=== PATIENT | male | born 1965 | race Hispanic/Latino ===

== ENCOUNTER 2022-11-10 17:19 | Inpatient (IN) | payer SELFPAY ==
--- OUTSIDE RECORDS SUMMARY | 2022-11-10 17:24 | XMS REPORT | Continuity of Care Document ---
:1965 Author Organization [facility] t Address [address] [facility] [address] [place] [address] Care Team Providers Name Role Phone PCP, PATIENT DOES NOT HAVE A Primary Care Physician Unavaila ble NU BEE Attending Clinician Unavailable NU BEE Attending Clinician Unavailable Doctor Unassigned, [facility] Attending Clinician Unavailable BRENDA TIRADO Attending Clinician Unavailable Pob, [facility] Main Attending Clinician Unavailable Brenda Tirado MD Attending Clinician Rashmi Delcid LVN Attending Clinician CITLALY LUZ Attending Clinician Unavailable Micah Parks DO Attending Clinician Fritz Marin MD Attending Clinician Citlaly Luz MD Attending Clinician MARIA LUISA SPENCER Attending Clinician Unavailable Maria Luisa Franks Attending Clinician DEREK COLUNGA Attending Clinician Unavailable Derek Colunga MD Attending Clinician _[facility] Attending Clinician Unavailable ALEX RICHARDSON Attending Clinician Unavailable Alex Richardson MD Attending Clinician FRITZ MARIN Admitting Clinician Unavailable Fritz Marin MD Admitting Clinician DEREK COLUNGA Admitting Clinician Unavailable [email or web address] Admitting Clinician Unavailable Payers Payer Name Policy Type Policy Number Effective Date Expiration Date [place] PENDING 2022 PENDING 00:00:00 Problems Condition Condition Condition Status Onset Resolution Last Treating Co mments Source Name Details Category Date Date Treatment Clinician Date Pain in Pain in Disease Active Univers testicle, testicle, 08-10 ity of unspecif[place] Medical laterality laterality Br anch Epididymo- Epididymo- Disease Active U nivers orchitis orchitis 08-10 ity of 00:00: [place] 00 Medical Branch Allergies, Adverse Reactions, Alerts Allergy Allergy Status Severity Reaction(s) Onset Inactive Treating Comm ents Source Name Type Date Date Clinician NO KNOWN Drug Active Univers ALLERGIE Class ity of S [place] [facility] Social History Social Habit Start Date Stop Date Quantity Comments Source History SDOH University o f Alcohol Std Drinks [place] [facility] History SDOH University o f Alcohol Binge [place] [facility] al [facility] History SDOH Social Unive rsity of Connections [facility] Med ical Together Branch History SDOH Social Unive rsity of Connections [facility] Medical Branch History SDOH Social Unive rsity of Connections [place] [facility] Membership Branch History SDOH Social Unive rsity of Connections [place] [facility] Meetings Branch History of tobacco Cigarette Smoker University of use [place] [facility] Alcohol intake 2022-08-25 2022-08-25 Ex-drinker University of 00:00:00 00:00:00 (finding) [place] [facility] History SDOH 2022-08-10 2022-08-10 1 University o f Alcohol Frequency 00:00:00 00:00:00 [place] M edical Branch History SDOH Social 2022-08-10 2022-08-10 5 Unive rsity of Connections Phone 00:00:00 00:00:00 [place] M edical Branch History SDOH Social 2022-08-10 2022-08-10 3 Unive rsity of Connections Living 00:00:00 00:00:00 [place] [facility] History SDOH 2022-08-10 2022-08-10 5 University o f Physical Activity 00:00:00 00:00:00 [place] [facility] ed[facility] DPW Branch History SDOH 2022-08-10 2022-08-10 4 University o f Physical Activity 00:00:00 00:00:00 [place] [facility] MPS Branch History SDOH 2022-08-10 2022-08-10 5 University o f Financial 00:00:00 00:00:00 [place] [facility] History SDOH Food 2022-08-10 2022-08-10 1 Univers ity of Worry 00:00:00 00:00:00 [place] [facility] History SDOH Food 2022-08-10 2022-08-10 1 Univers ity of Scarcity 00:00:00 00:00:00 [place] [facility] History SDOH 2022-08-10 2022-08-10 2 University o f Transport Med 00:00:00 00:00:00 [place] [facility] al [facility] History SDNV 2022-08-10 2022-08-10 2 University o f Transport Non-Med 00:00:00 00:00:00 [place] M edical Branch History SDNV 2022-08-10 2022-08-10 2 University o f Housing Unable to 00:00:00 00:00:00 [place] M edical Pay Branch History SDNV 2022-08-10 2022-08-10 1 University o f Housing Places 00:00:00 00:00:00 [place] [facility] crow Lived Branch History [facility] 2022-08-10 2022-08-10 2 University o f Housing Homeless 00:00:00 00:00:00 [facility] dical Last Year Branch Alcohol Comment 2022-08-10 2022-08-10 12-15 beers on a Uni versity of 00:00:00 00:00:00 week for 30 [place] [facility] years. Quit 9 Branch months ago Cigarettes smoked 2022-08-10 2022-08-10 Univers ity of current (pack per 00:00:00 00:00:00 [facility] edical day) - Reported Branch Cigarette 2022-08-10 2022-08-10 University of pack-years 00:00:00 00:00:00 [facility] Branch Tobacco use and 2022-08-10 2022-08-10 Smokeless Universit y of exposure 00:00:00 00:00:00 tobacco non-user [place] Me dical Branch Exposure to 2022-07-30 2022-08-09 Not sure University of SARS-CoV-2 (event) 00:00:00 19:55:00 [facility] Sex Ass[birth year] At [birth year] Universit y of 00:00:00 00:00:00 [facility] Smoking Status Start Date Stop Date Source Tobacco smoking [place] consumption unknown Medical Bran ch Ex-smoker 2022-08-10 00:00:00 2022-08-10 [place] o f [place] 00:00:00 [facility] Medications Ordered Filled Start Stop Current Ordering Indication Dosage Frequency Signature Comments Components Source Medication Medication Date Date Medication? Clinician (SIG) Name Name ciprofloxac 2022- Yes 500mg 500 mg, U nivers in HCl 5-25 06-04 Oral, ity of (CIPRO) 12:45: 10:59 Q12HA2, 20 [place] tablet 500 00 :00 doses, Medical mg First dose Branch on Karina 08/13/22 at 0745, Last dose on 08/22/22 at 1800, HELGA
Re ason for Anti-Infec tive: Documented Infection< br>Documen sofia Infection Site: Skin / Soft Tissue
Duration of Therapy: 7 days ciprofloxac 2022- Yes [id number] 500mg Take 1 Univers in HCl 500 5-25 06-04 tablet by ity of mg tablet 00:00: 04:59 mouth [place] 00 :00 every 12 Medical (twelve) Branch hours for 9 days. ciprofloxac 2022- Yes [id number] 500mg Take 1 Univers in HCl 500 5-25 06-04 tablet by ity of mg tablet 00:00: 04:59 mouth [place] 00 :00 every 12 Medical (twelve) Branch hours for 9 days. ciprofloxac 2022- Yes [id number] 500mg Take 1 Univers in HCl 500 5-25 06-04 tablet by ity of mg tablet 00:00: 04:59 mouth [place] 00 :00 every 12 Medical (twelve) Branch hours for 9 days. ciprofloxac 2022- Yes [id number] 500mg Take 1 Univers in HCl 500 5-25 06-04 tablet by ity of mg tablet 00:00: 04:59 mouth [place] 00 :00 every 12 Medical (twelve) Branch hours for 9 days. NaCl 0.9% 0 2022- No 500mL at 999 Univ ers (NS) bolus 08-12 05-24 mL/hr, 500 it y of infusion 07:45: 09:02 mL, IV [place] 500 mL 00 :00 Piggyback, [facility] ONCE, 1 Branch dose, On Wed08/12/22 at 0245, HELGA NaCl 0.9% 0 2022- No 500mL at 999 Univ ers (NS) bolus 08-11 05-23 mL/hr, 500 it y of infusion 22:45: 23:16 mL, IV [place] 500 mL 00 :43 Piggyback, Medical ONCE, 1 Branch dose, On Wed08/11/22 at 1745, STAT acetaminoph Yes 650mg 650 mg, Un gavi en 08-11 Oral, ity of (TYLENOL) 21:57: Q6HPRN, [place] tablet 650 24 Starting Medic al mg on Wed08/11/22 at 1657, Until Discontinu ed, Routine, Pain (scale 1-3), Temp > 38 C lactulose Yes 15mL 15 mL, Univer s (CEPHULAC) 08-11 Oral, TID, ity of solution 15 13:00: First dose [place] mL 00 on Wed [facility] 08/11/22 at Branch 0800, Until Discontinu ed, Routine bisacodyL Yes 10mg 10 mg, Univer s (DULCOLAX) 08-11 Rectal, ity of suppository 12:53: QHSPRN, [place] 10 mg 54 Starting Medical on Wed [place] 08/11/22 at 0753, Until Discontinu ed, Routine, Constipati on, Constipati on unresolved by oral medication s cefTRIAXone 0 2022- No 1000mg 1,000 mg, Univers (ROCEPHIN) 08-11 05-25 IV ity of 1,000 mg in 03:05: 12:33 [place], [place] NaCl 0.9% 00 :41 Q24H ABX, Medic al (NS) 100 mL 7 doses, Bran ch MINI-BAG First dose on 08/10/22 at 2215, Last dose on Wed08/16/22 at 2215, Administer over 30 Minutes, 100 mL
Reas on for Anti-Infec tive: Documented Infection< br>Documen sofia Infection Site: Urine
D uration of Therapy: 7 days tamsulosin Yes .4mg 0.4 mg, Univ ers (FLOMAX) 08-11 Oral, QHS, ity o f capsule 0.4 02:00: First dose [place] mg 00 on [facility] 08/10/22 at Branch 2100, Until Discontinu ed, Routine enoxaparin Yes 40mg 40 mg, Unive rs (LOVENOX) 08-10 Subcutaneo ity of injection 22:00: us, DAILY, [place] 40 mg 00 First dose Medical on [facility] 08/10/22 at 1700, Until Discontinu ed, Routine NaCl 0.9% No 500mL at 999 Univ ers (NS) bolus 08-10 mL/hr, 500 it y of infusion 14:45: 15:12 mL, IV [place] 500 mL 00 :43 Piggyback, Medical ONCE, 1 Branch dose, On [facility] 08/10/22 at 0945, STAT sennosides Yes 8.6mg 8.6 mg, Uni vers (SENOKOT) 08-10 Oral, ity of tablet 8.6 14:00: DAILY, [place] mg 00 First dose Medical on [facility] 08/10/22 at 0900, Until Discontinu ed, Routine finasteride Yes 5mg 5 mg, Unive rs (PROSCAR) 08-10 Oral, ity of tablet 5 mg 14:00: DAILY, [place] 00 First dose Medical on [facility] 08/10/22 at 0900, Until Discontinu ed, Routine polyethylen 2022- No 17g 17 g, Univ ers e glycol 08-10 Oral, ity of 3350 powder 14:00: 12:53 DAILY, [place] 17 g 00 :50 First dose Medical on [facility] 08/10/22 at 0900, Until Discontinu ed, Routine doxycycline 2022- No 100mg 100 mg, IV Univers (VIBRAMYCIN 08-10 Piggyback, i ty of ) 100 mg in 09:15: 12:31 Q12H ABX, [place] NaCl 0.9% 00 :21 14 doses, Medic al (NS) 100 mL First dose Br anch MINI-BAG on Wed08/10/22 at 0415, Last dose on Wed08/16/22 at 1615, Administer over 60 Minutes, 100 mL
Reas on for Anti-Infec tive: Documented Infection< br>Documen sofia Infection Site: Urine
D uration of Therapy: 7 days acetaminoph 2022- No 650mg 650 mg, U nivers en 08-10 Oral, ity of (TYLENOL) 08:05: 21:57 Q6HPRN, [place] tablet 650 58 :33 Starting Medic al mg on Wed08/10/22 at 0305, Until Wed08/11/22 at 1657, Routine, Pain (scale 1-3) NaCl 0.9% 2022- No 500mL at 999 Univ ers (NS) bolus 08-10-22 mL/hr, 500 it y of infusion 04:30: 05:05 mL, IV [place] 500 mL 00 :00 Infusion, Medical ONCE, 1 Branch dose, On [place] 08/09/22 at 2330, STAT acetaminoph 2022-2022- No 650mg 650 mg, U nivers en 08-10 Oral, ity of (TYLENOL) 03:45: 03:44 ONCE, 1 [place] tablet 650 00 :00 dose, On Medic al mg [facility] 08/09/22 at 2245, HELGA NaCl 0.9% 2022- No 500mL at 999 Univ ers (NS) bolus 08-10-22 mL/hr, 500 it y of infusion 03:45: 05:05 mL, IV [place] 500 mL 00 :00 Infusion, Medical ONCE, 1 Branch dose, On [place] 08/09/22 at 2245, STAT cefTRIAXone 2022-2022- No 1000mg 1,000 mg, Univers (ROCEPHIN) 08-10 IV ity of 1,000 mg in 03:15: 03:35 Piggyback, [place] NaCl 0.9% 00 :00 ONCE, 1 Medical (NS) 100 mL dose, On Bran ch MINI-BAG [place] 08/09/22 at 2215, Administer over 30 Minutes, 100 mL
Reas on for Anti-Infec tive: Documented Infection< br>Documen sofia Infection Site: Urine<br&g t;Duration of Therapy: 7 days ketorolac No 15mg 15 mg, Unive rs (TORADOL) 08-10 Slow IV ity of injection 02:15: 01:17 Push, [place] 15 mg 00 :00 ONCE, 1 Medical dose, On Branch Wed08/09/22 at 2115, HELGA NaCl 0.9% 2022- No 1000mL at 999 Uni vers (NS) bolus 08-10- mL/hr, ity of infusion 02:00: 02:27 1,000 mL, [place] 1,000 mL 00 :00 IV Medical Infusion, Branch ONCE, 1 dose, On Wed08/09/22 at 2100, HELGA NaCl 0.9% 2022- No 1000mL at 999 Uni vers (NS) bolus 07-16 04-27 mL/hr, ity of infusion 02:45: 03:31 1,000 mL, [place] 1,000 mL 00 :00 IV Medical Piggyback, Branch ONCE, 1 dose, On Wed07/15/22 at 2145, STAT finasteride Yes [id number] 5mg Take 1 Univers (PROSCAR) 5 4-26 tablet by ity of mg tablet 00:00: mouth [place] 00 daily. [facility] finasteride Yes [id number] 5mg Take 1 Univers (PROSCAR) 5 4-26 tablet by ity of mg tablet 00:00: mouth [place] 00 daily. [facility] finasteride Yes [id number] 5mg Take 1 Univers (PROSCAR) 5 4-26 tablet by ity of mg tablet 00:00: mouth [place] 00 daily. [facility] finasteride Yes [id number] 5mg Take 1 Univers (PROSCAR) 5 4-26 tablet by ity of mg tablet 00:00: mouth [place] 00 daily. [facility] finasteride Yes [id number] 5mg Take 1 Univers (PROSCAR) 5 4-26 tablet by ity of mg tablet 00:00: mouth [place] 00 daily. [facility] tamsulosin Yes [id number] .4mg Take 1 Univers 0.4 mg 24 4-26 capsule by ity of hr capsule 00:00: mouth at [place] 00 bedtime. Medical Branch finasteride 2022-0 Yes [id number] 5mg Take 1 Univers (PROSCAR) 5 4-26 tablet by ity of mg tablet 00:00: mouth [place] 00 daily. Medical Branch tamsulosin 2022-0 Yes [id number] .4mg Take 1 Univers 0.4 mg 24 4-26 capsule by ity of hr capsule 00:00: mouth at [place] 00 bedtime. Medical Branch finasteride 2022-0 Yes [id number] 5mg Take 1 Univers (PROSCAR) 5 4-26 tablet by ity of mg tablet 00:00: mouth [place] 00 daily. Medical Branch finasteride 2022-0 Yes [id number] 5mg Take 1 Univers (PROSCAR) 5 4-26 tablet by ity of mg tablet 00:00: mouth [place] 00 daily. Medical Branch finasteride 2022-0 Yes [id number] 5mg Take 1 Univers (PROSCAR) 5 4-26 tablet by ity of mg tablet 00:00: mouth [place] 00 daily. Medical Branch tamsulosin 0 2022- No [id number] .4mg Take 1 Univers 0.4 mg 24 4-26 05-08 capsule by ity of hr capsule 00:00: 00:00 [place] :00 bedtime. Medical Branch tamsulosin 2022-0 2022- No [id number] .4mg Take 1 Univers 0.4 mg 24 4-26 05-08 capsule by ity of hr capsule 00:00: 00:00 [place] 00 :00 bedtime. Medical Branch tamsulosin 2022-0 Yes [id number] .4mg Take 1 Univers 0.4 mg 24 4-24 capsule by ity of hr capsule 00:00: mouth at [place] 00 bedtime. Medical Branch tamsulosin 2022-0 Yes [id number] .4mg Take 1 Univers 0.4 mg 24 4-24 capsule by ity of hr capsule 00:00: mouth at [place] 00 bedtime. Medical Branch tamsulosin 2022-0 Yes [id number] .4mg Take 1 Univers 0.4 mg 24 4-24 capsule by ity of hr capsule 00:00: mouth at [place] 00 bedtime. Medical Branch tamsulosin 2022-0 Yes [id number] .4mg Take 1 Univers 0.4 mg 24 4-24 capsule by ity of hr capsule 00:00: mouth at [place] 00 bedtime. Medical Branch tamsulosin 2022-0 Yes [id number] .4mg Take 1 Univers 0.4 mg 24 4-24 capsule by ity of hr capsule 00:00: mouth at [place] 00 bedtime. Medical Branch tamsulosin 2022-0 Yes [id number] .4mg Take 1 Univers 0.4 mg 24 4-24 capsule by ity of hr capsule 00:00: mouth at [place] 00 bedtime. Medical Branch tamsulosin 2022-0 Yes [id number] .4mg Take 1 Univers 0.4 mg 24 4-24 capsule by ity of hr capsule 00:00: mouth at [place] 00 bedtime. Medical Branch tamsulosin 2022-0 Yes [id number] .4mg Take 1 Univers 0.4 mg 24 4-24 capsule by ity of hr capsule 00:00: mouth at [place] 00 bedtime. Medical Branch tamsulosin 2022-0 Yes [id number] .4mg Take 1 Univers 0.4 mg 24 4-24 capsule by ity of hr capsule 00:00: mouth at [place] 00 bedtime. Medical Branch tamsulosin 2022-0 Yes [id number] .4mg Take 1 Univers 0.4 mg 24 4-24 capsule by ity of hr capsule 00:00: mouth at [place] 00 bedtime. Medical Branch Immunizations Ordered Immunization Filled Immunization Date Status Commen ts Source Name Name tetanus toxoid, tetanus toxoid, 2020-03-22 Completed [facility] unspecified unspecified 00:00:00 formulation formulation Vital Signs Vital Name Observation Time Observation Value Comments Source Systolic blood 2022-08-13 17:28:00 137 mm[Hg] Univer sity of pressure [facility] Diastolic blood 2022-08-13 17:28:00 96 mm[Hg] [facility] Heart rate 2022-08-13 17:28:00 85 /min [facility] Body temperature 2022-08-13 17:28:00 36.22 Haley [facility] Respiratory rate 2022-08-13 17:28:00 20 /min [facility] Oxygen saturation in 2022-08-13 17:28:00 96 /min University of Arterial blood by [place] [facility] crow Pulse oximetry Branch Body height 2022-08-10 08:04:00 170.2 cm Universi ty of [place] [facility] Body weight 2022-08-10 08:04:00 82.555 kg Universi ty of [place] [facility] BMI 2022-08-10 08:04:00 28.51 kg/m2 Universi ty of [place] [facility] Systolic blood 2022-07-27 19:26:00 143 mm[Hg] Univer sity of pressure [place] [facility] Diastolic blood 2022-07-27 19:26:00 98 mm[Hg] Unive rsity of pressure [place] [facility] Heart rate 2022-07-27 19:26:00 88 /min Universi ty of [place] [facility] Oxygen saturation in 2022-07-27 19:26:00 97 /min University of Arterial blood by [facility] Pulse oximetry Branch Body temperature 2022-07-27 19:24:00 36.17 Haley Univ ersity of [place] [facility] Respiratory rate 2022-07-27 19:24:00 18 /min Univ ersity of [place] [facility] Body height 2022-07-27 19:24:00 170.2 cm Universi ty of [place] [facility] Body weight 2022-07-27 19:24:00 81.194 kg Universi ty of [place] [facility] BMI 2022-07-27 19:24:00 28.04 kg/m2 Universi ty of [place] [facility] Systolic blood 2022-07-16 03:00:00 149 mm[Hg] Univer sity of pressure [place] [facility] Diastolic blood 2022-07-16 03:00:00 92 mm[Hg] Unive rsity of pressure [place] [facility] Heart rate 2022-07-16 03:00:00 67 /min Universi ty of [place] [facility] Respiratory rate 2022-07-16 03:00:00 18 /min Univ ersity of [place] [facility] Oxygen saturation in 2022-07-16 03:00:00 95 /min University of Arterial blood by [facility] crow Pulse oximetry Branch Body temperature 2022-07-15 23:32:00 37 Haley Univ ersity of [place] [facility] Body weight 2022-07-15 23:32:00 78.019 kg Universi ty of [place] [facility] Systolic blood 2022-07-13 09:28:00 176 mm[Hg] [facility] Diastolic blood 2022-07-13 09:28:00 115 mm[Hg] [facility] Heart rate 2022-07-13 09:28:00 90 /min [facility] Body temperature 2022-07-13 09:28:00 36.28 Haley [facility] Respiratory rate 2022-07-13 09:28:00 16 /min [facility] Body weight 2022-07-13 09:28:00 78.382 kg [facility] Body Weight 2022-07-13 00:00:00 2790 [oz_av] Fabiola Godinez edical BP Diastolic 2022-07-13 00:00:00 95 mm[Hg] [facility] Height 2022-07-13 00:00:00 67 [in_i] Fabiola Godinez edical BMI (Body Mass 2022-07-13 00:00:00 27.3 kg/m2 [facility]) BP Systolic 2022-07-13 00:00:00 139 mm[Hg] Fabiola Godinez edical Procedures Procedure Date / Time Performing Clinician Source Performed DISCLOSURE AND CONSENT, 2022-09-16 05:01:00 Doctor Unassigned, [facility] MEDICAL AND SURGICAL [facility] PROCEDURES CBC WITH DIFF 2022-08-13 15:33:00 [facility] MAGNESIUM 2022-08-13 10:47:00 [facility] [place] [facility] HEPATIC FUNCTION PANEL 2022-08-13 10:47:00 [facility] ([id number]) (ALB,T.PRO,BIL Medical Branch T,BU/BC,ALT,AST,ALK PHOS) BASIC METABOLIC PANEL 2022-08-13 10:47:00 [facility] (NA, K, CL, CO2, GLUCOSE, Medica l Branch BUN, CREATININE, [place]) BLOOD CULTURE SCREEN 2022-08-12 05:26:00 [facility] MAGNESIUM 2022-08-12 05:26:00 [facility] HEPATIC FUNCTION PANEL 2022-08-12 05:26:00 [facility] ([id number]) (ALB,T.PRO,BILI Medical [place] T,BU/BC,ALT,AST,ALK PHOS) BASIC METABOLIC PANEL 2022-08-12 05:26:00 [facility] (NA, K, CL, CO2, GLUCOSE, Medica l Branch BUN, CREATININE, CA) CBC WITH DIFF 2022-08-12 05:26:00 [facility] BLOOD CULTURE SCREEN 2022-08-11 23:47:00 [facility] 2022-08-11 19:02:00 [facility] HEPATITIS B SURFACE 2022-08-11 11:31:00 [facility] ANTIBODY [facility] HEPATITIS B SURFACE 2022-08-11 11:31:00 [facility] [place] [facility]TIGEN [facility] HCV ANTIBODY 2022-08-11 11:31:00 [facility] HEPATITIS B CORE ANTIBODY 2022-08-11 11:31:00 [facility] IGM [facility] Branch HAV ANTIBODY (IGG AND 2022-08-11 11:31:00 [facility] IGM) [facility] HIV 1/2 AG-AB WITH REFLEX 2022-08-11 11:31:00 Laina Wolfe [facility] MAGNESIUM 2022-08-11 09:33:[address] [facility] BASIC METABOLIC PANEL 2022-08-11 09:33:00 [facility] (NA, K, CL, CO2, GLUCOSE, Medica l Branch BUN, CREATININE, CA) CBC WITH DIFF 2022-08-11 09:33:[address] [facility] US ABDOMEN LIMITED 2022-08-10 21:56:19 [facility] MAGNESIUM 2022-08-10 08:45:00 Ibeth [facility] PROSTATIC SPECIFIC 2022-08-10 08:45:00 Clark Fernandez [facility] ANTIGEN [facility] VITAMIN B12, LEVEL 2022-08-10 08:45:00 Ibeth [facility] COMP. METABOLIC PANEL 2022-08-10 08:45:[address] [facility] ([id number]) Medical [place] CBC WITH DIFF 2022-08-10 08:45:00 Ibeth [facility] GLYCOSYLATED HEMOGLOBIN 2022-08-10 08:45:00 Ibeth [facility] (A1C) [facility] GC & CHLAMYDIA AMPLIFIED 2022-08-10 08:45:00 Ibeth [facility] ASSAY [facility] VITAMIN B1 (THIAMINE), 2022-08-10 08:45:00 Ibeth [facility] WHOLE BLOOD [facility] BLOOD CULTURE SCREEN 2022-08-10 04:32:00 Micah Parks [facility] URINE CULTURE 2022-08-10 03:05:00 Micah Parks [facility] US TESTICULAR TORSION 2022-08-10 02:54:55 Kasey Micah [facility] COMP. METABOLIC PANEL 2022-08-10 02:52:00 Kasey Micah [facility] ([id number]) [facility] CBC WITH DIFF 2022-08-10 01:18:00 Micah Parks [facility] URINALYSIS 2022-08-10 01:18:00 Kasey Micah [facility] NOTICE OF PRIVACY 2022-08-10 00:47:10 Doctor Yousif [facility] PRACTICES [facility] [place] CONSENT/REFUSAL FOR 2022-08-10 00:46:06 Doctor Yousif [facility] DIAGNOSIS AND TREATMENT [facility] [place] AGREEMENTS AUTHORIZATIONS 2022-08-09 05:01:00 Doctor Dodd [facility] AND IRREVOCABLE [facility] [place] ASSIGNMENTS (FORM 2001) ASSIGNMENT OF BENEFITS 2022-07-27 19:10:29 Doctor Yousif [facility] Medical [place] URINALYSIS 2022-07-16 00:18:00 Derek Colunga [facility] COMP. METABOLIC PANEL 2022-07-15 23:59:00 Derek Colunga [facility] ([id number]) [facility] CBC WITH DIFF 2022-07-15 23:59:00 Derek Colunga [facility] CONSENT/REFUSAL FOR 2022-07-15 23:22:06 Doctor Jessica Dodd [facility] DI[facility]NOSIS [facility]AT[facility] 2022-07-13 10:11:00 Alex Richardson [facility] NOTICE OF PRIVACY 2022-07-13 09:19:43 Doctor Yousif [facility] PRACTICES [facility] CONSENT/REFUSAL FOR 2022-07-13 09:18:39 [facility] DIAGNOSIS AND TREATMENT [facility] Plan of Care Planned Activity Planned Date Details Comments Source Diagnostic Test Pending 2022-07-13 00:00:00 PSA, serum or [facility] plasma [code = PSA, serum or plasma] Encounters Start End Encounter Admission Attending Care Care Encounter Source Date/Time Date/Time Type Type Clinicians Facility Department ID 2022-09-30 2022-09-30 Outpatient R ROHIT [facility] [id number] Univers 14:20:00 14:20:00 ROHIT NU [facility] 2022-09-16 2022-09-16 Orders Doctor WEN [id number] Univers 00:00:00 00:00:00 Only JOSE CARLOS [id number] [facility] 4.2.7.2.686 Cricket as [phone] [place] [address] [address] 2022-08-25 2022-08-25 Outpatient R CANDIDA [facility] [id number] Univers 13:30:00 14:47:05 BRENDA [facility] 2022-08-18 2022-08-18 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 Kaminski Lab Main [facility] 1.2.8 40.114 [id number] Univers 17:00:00 17:15:00 Visit Brenda Tirado 350.1.13.10 [facility] [phone] [place] NAL 353 [facility] 2022-08-18 2022-08-18 [facility] [id number] Univers 17:00:00 17:00:00 BRENDA ity of [facility] 2022-08-18 2022-08-18 [facility] 1.2.840.114 [id number] Univers 00:00:00 00:00:00 Brenda MERLYN 350.1.13.10 i [place] [id number] [place] NAL 204 [facility] 2022-08-14 2022-08-14 Transition KELLI Delcid 1.2.840.114 [id number] Univers 00:00:00 00:00:00 of Care Rashmi CASTRO 350.1.13.10 [place]y [place] [id number] [facility] [address] 2022-08-09 2022-08-13 Inpatient X [facility] [id number] Univers 20:00:00 14:41:00 [facility] ity [facility] 2022-08-09 2022-08-13 [facility] Micah Parks 1.2.840.11 4 [id number] Univers 20:00:00 14:41:00 Encounter Fritz Marin 350.1.13.10 ity of [facility] 4.2.7.2.686 [place] [id number] [facility] [address] 2022-07-27 2022-07-27 [facility] 1045 [id number] Univers 14:45:00 16:11:01 MARIA LUISA kraft o f [facility] 2022-07-27 2022-07-27 Office [facility] 1.2.840.114 [id number] Univers 14:45:00 16:11:01 Visit Maria Luisa ZULETA 350.1.13.10 it[facility] of [facility] 4.[place].2.[place] [phone] [place] NAL 204 [facility] 2022-07-27 2022-07-27 Orders Doctor BETTYE 1.2.840.114 [id number] Univers 00:00:00 00:00:00 Only Unassigned, JOSE CARLOS 350.1.13.10 ity of [facility] 4.2.7.2.686 [place] [phone] [facility] [address] 2022-07-15 2022-07-15 Emergency X VASUT, [facility] ERT [id number] Univers 18:33:00 23:17:00 DEREK [facility] 2022-07-15 2022-07-15 Emergency [facility] 1.2.792.087 [id number] Univers 18:33:00 23:17:00 Derek ZULETA 350.1.13.10 i ty of [place] 4.2.7.2.686 [facility] [phone] [address] 2022-07-15 2022-07-15 Outpatient [facility]_Walk PRIV PRIV 220 [id number] [facility] 00:00:00 00:00:00 InSchedul [id number] [facility] 2022-07-13 2022-07-13 Emergency X JAYES, [facility] ERT [id number] Univers 04:18:00 06:54:00 ALEX [facility] 2022-07-13 2022-07-13 Emergency [facility] 1.2.238.230 [id number] Univers 04:18:00 06:54:00 Alex ZULETA 350.1.13.10 i ty of [place] 4.2.7.2.686 [facility] [id number] [place] [address] [place] 2022-07-13 2022-07-13 Outpatient [facility]Walk PRIV PRIV 220 [id number] [facility] 00:00:00 00:00:00 InSchedul [id number] [facility] 2022-07-13 2022-07-13 Carolynn [facility] [id number] [facility] 00:00:00 00:00:00 [facility] [place]: [id number] [place] [address] , Ph. 2022-01-23 2022-01-23 Outpatient [facility] [id number] [place] 11:28:03 11:28:03 [address] F [place] 2022-01-15 2022-01-15 Outpatient [facility] [id number] [place] 13:47:28 13:47:28 F Thomas Results Test Description Test Time Test Comments Results Result Comments Source CBC WITH DIFF 2022-08-13 16:38:04 Test Item Value Reference Range Interpretation Comme nts WBC (test code = 6690-2) 11.05 See_Comment H [A utomated message] The system which ge nerated this result transmit sofia reference range: 4.20 - 1 0.70 10*3/?L. The reference r rogelio was not used to interpr et this result as normal/abnor mal. RBC (test code = 789-8) 4.64 See_Comment [Au tomated message] The system which ge nerated this result transmit sofia reference range: 4.26 - 5 .52 10*6/?L. The reference r rogelio was not used to interpr et this result as normal/abnor mal. HGB (test code = 718-7) 13.6 g/dL 12.2-16.4 HCT (test code = 4544-3) 38.9 % 38.4-49.3 MCV (test code = 787-2) 83.8 fL 81.7-95.6 MCH (test code = 785-6) 29.3 pg 26.1-32.7 MCHC (test code = 786-4) 35.0 g/dL 31.2-35.0 RDW-SD (test code = 29460-0) 41.0 fL 38.5-51.6 RDW-CV (test code = 788-0) 13.4 % 12.1-15.4 PLT (test code = 777-3) 213 See_Comment [Au tomated message] The system which ge nerated this result transmit sofia reference range: 150 - 32 8 10*3/?L. The reference range was not used to interpret th is result as normal/abnormal . MPV (test code = 60605-1) 10.5 fL 9.8-13.0 NRBC/100 WBC (test code = 0.0 See_Comment [ Automated message] The [id number]) system which [employer] nerated this result transmit sofia reference range: 0.0 - 10 .0 /100 WBCs. The reference r rogelio was not used to interpr et this result as normal/abnor mal. NRBC x10^3 (test code = See_Comment [Au tomated message] The 3234273744) system which [employer] nerated this result transmit sofia reference range: 10*3/?L. The reference range was not u sed to interpret this result as normal/abnormal . GRAN MAT (NEUT) % (test code 66.2 % = 770-8) IMM GRAN % (test code = 5.40 % 8944337175) LYMPH % (test code = 736-9) 12.4 % MONO % (test code = 5905-5) 11.9 % EOS % (test code = 713-8) 3.4 % BASO % (test code = 706-2) 0.7 % GRAN MAT x10^3(ANC) (test 7.31 10*3/uL 1.99-6.95 H code = 1002568466) IMM GRAN x10^3 (test code = 0.60 10*3/uL 0.00-0.06 H 1316031483) LYMPH x10^3 (test code = 1.37 10*3/uL 1.09-3.23 731-0) MONO x10^3 (test code = 1.31 10*3/uL 0.36-1.02 H 742-7) EOS x10^3 (test code = 0.38 10*3/uL 0.06-0.53 711-2) BASO x10^3 (test code = 0.08 10*3/uL 0.01-0.09 704-7) REACT LYMPHS (test code = Rare 2636144658) Lab Interpretation (test Abnormal code = 85091-4) [facility] METABOLIC PANEL (NA, K, CL, CO2, GLUCOSE, BUN, CREATININE, CA)2022-08-13 15:22:28 Test Item Value Reference Range Interpretation Comments NA (test code = 133 mmol/L 135-145 L 2699684514) K (test code = 3.8 mmol/L 3.5-5.0 3080451848) CL (test code = 98 mmol/L 98-108 7641280914) CO2 TOTAL (test code = 23 mmol/L 23-31 5879419721) AGAP (test code = 12 2-16 3404878776) BUN (test code = 16 mg/dL 7-23 5918782367) GLUCOSE (test code = 108 mg/dL 70-110 2521104417) CREATININE (test code = 0.74 mg/dL 0.60-1.25 4145672448) CALCIUM (test code = 8.8 mg/dL 8.6-10.6 4459515628) eGFR (test code = 109.0 mL/min/1.73m2 7419439484) ROXY (test code = ROXY) Association of Glomerular Filtration Rate (GFR) and Staging of Kidney Disease* + --+ --+ ------+| GFR (mL/min/1.73 m2) ?| With Kidney Damage ?| ?Without Kidney Damage+ --------+ --------+ +| ?>90 ?| ?Stage one ?| ? Normal ?+ ---+ ---+ -------+| ?60-89 ?| ?Stage two ?| ? Decreased GFR ? + --+ --+ ------+| ?30-59 ?| ?Stage three ?| ? Stage three ? + --+ --+ ------+| ?15-29 ?| ?Stage four ? | ? Stage four ?+ ---+ ---+ -------+| ?<15 (or dialysis) ? ?| ?Stage five ? | ? Stage five ?+ ---+ ---+ -------+ *Each stage assumes the associated GFR level has been in effect for at least three months. ?Stages 1 to 5, with or without kidney disease, indicate chronic kidney disease. Notes: Determination of stages one and two (with eGFR >59mL/min/1.73 m2) requires estimation of kidney damage for at least three months as defined by structural or functional abnormalities of the kidney, manifested by either:Pathological abnormalities or Markers of kidney damage (including abnormalities in the composition of the blood or urine or abnormalities in imaging tests). Lab Interpretation Abnormal (test code = 56903-1) [facility] 11:32:50 Test Item Value Reference Range Interpretation Comments MAGNESIUM (test code = 2321445832) 2.4 mg/dL 1.7-2.4 Lab Interpretation (test code = Normal 28513-6) [facility]48040[facility] (ALB,T.PRO,BILI T,BU/BC,ALT,AST,ALK PHOS)2022-08-13 11:32:50 Test Item Value Reference Range Interpretation Comments TOTAL BILI (test code = 3144669652) 0.8 mg/dL 0.1-1.1 BILI UNCON (test code = 9247916263) 0.3 mg/dL 0.1-1.1 BILI CONJ (test code = 6332844561) 0.0 mg/dL 0.0-0.3 T PROTEIN (test code = 6053704706) 7.1 g/dL 6.3-8.2 ALBUMIN (test code = 2542802697) 3.7 g/dL 3.5-5.0 ALK PHOS (test code = 1428103419) 168 U/L 34-122 H ALTv (test code = 1742-6) 149 U/L 5-50 H AST(SGOT) (test code = 9297056312) 78 U/L 13-40 H Lab Interpretation (test code = Abnormal 04542-8) [facility] (THIAMINE), WHOLE [id number] 13:53:21 Test Item Value Reference Range Interpretation Comments Vitamin B1, Whole 191 nmol/L 70-180 H INTERPRETI VE Blood (test code = INFORMATI ON: Vitamin 70562-8) B1, Whole Blood This assay measures the concentration o f thiamine diphos phate (TDP), the prim christine active form of vitamin B1. Approximate ly 90 percent of ciera min B1 present in whol e blood is TDP. Thiamin e and thiamine monophosphate, which comprise the re maining 10 percent, are not measured. This test was developed a nd its performance characteristics determined by [facility]. I t has not been cleare d or approved by the [place] Food and Drug Administration. This test was perfor med in a CLIA certifie d laboratory and is intended for cl inical purposes.Perfor med By: [facility] [address] [place], [place] [address]Fizbidxqze Director: Jeniffer Breaux MD, PhD Lab Interpretation Abnormal (test code = 71910-7) [facility] (19056[facility] (ALB,T.PRO,BILI T,BU/BC,ALT,AST,ALK PHOS)2022-08-12 06:21:10 Test Item Value Reference Range Interpretation Comments TOTAL BILI (test code = 1246693976) 1.4 mg/dL 0.1-1.1 H BILI UNCON (test code = 3415744594) 0.6 mg/dL 0.1-1.1 BILI CONJ (test code = 6519333538) 0.0 mg/dL 0.0-0.3 T PROTEIN (test code = 0853296949) 7.2 g/dL 6.3-8.2 ALBUMIN (test code = 9259481406) 3.8 g/dL 3.5-5.0 ALK PHOS (test code = 0963294580) 162 U/L 34-122 H ALTv (test code = 1742-6) 147 U/L 5-50 H AST(SGOT) (test code = 7180292276) 112 U/L 13-40 H Lab Interpretation (test code = Abnormal 33180-1) [facility]2023-[facility]-24 06:21:10 Test Item Value Reference Range Interpretation Comments MAGNESIUM (test code = 2280206774) 2.1 mg/dL 1.7-2.4 Lab Interpretation (test code = Normal 45796-8) [facility] (NA, K, CL, CO2, GLUCOSE, BUN, CREATININE, CA)2022-08-12 06:21:10 Test Item Value Reference Range Interpretation Comments NA (test code = 134 mmol/L 135-145 L 8985702887) K (test code = 3.6 mmol/L 3.5-5.0 6105097470) CL (test code = 102 mmol/L 98-108 8837131303) CO2 TOTAL (test code = 21 mmol/L 23-31 L 4584126872) AGAP (test code = 11 2-16 8925325958) BUN (test code = 14 mg/dL 7-23 7692724243) GLUCOSE (test code = 136 mg/dL 70-110 H 6515013563) CREATININE (test code = 0.97 mg/dL 0.60-1.25 5005906128) CALCIUM (test code = 8.8 mg/dL 8.6-10.6 2444856320) eGFR (test code = 79.8 mL/min/1.73m2 2400126980) ROXY (test code = ROXY) Association of Glomerular Filtration Rate (GFR) and Staging of Kidney Disease* + --+ --+ ------+| GFR (mL/min/1.73 m2) ?| With Kidney Damage ?| ?Without Kidney Damage+ --------+ --------+ +| ?>90 ?| ?Stage one ?| ? Normal ?+ ---+ ---+ -------+| ?60-89 ?| ?Stage two ?| ? Decreased GFR ? + --+ --+ ------+| ?30-59 ?| ?Stage three ?| ? Stage three ? + --+ --+ ------+| ?15-29 ?| ?Stage four ? | ? Stage four ?+ ---+ ---+ -------+| ?<15 (or dialysis) ? ?| ?Stage five ? | ? Stage five ?+ ---+ ---+ -------+ *Each stage assumes the associated GFR level has been in effect for at least three months. ?Stages 1 to 5, with or without kidney disease, indicate chronic kidney disease. Notes: Determination of stages one and two (with eGFR >59mL/min/1.73 m2) requires estimation of kidney damage for at least three months as defined by structural or functional abnormalities of the kidney, manifested by either:Pathological abnormalities or Markers of kidney damage (including abnormalities in the composition of the blood or urine or abnormalities in imaging tests). Lab Interpretation Abnormal (test code = 78443-1) [facility] WITH [id number] 05:40:47 Test Item Value Reference Range Interpretation Comments WBC (test code = 17.21 See_Comment H [Automated 2390-2) message] The system which generated this result transmit sofia reference range : 4.20 - 10.70 10*3/?L. The reference range was not used to interpret this result as normal/abnormal . RBC (test code = 4.71 See_Comment [Automated 789-8) message] The system which generated this result transmit sofia reference range : 4.26 - 5.52 10*6/?L. The reference range was not used to interpret this result as normal/abnormal . HGB (test code = 13.4 g/dL 12.2-16.4 718-7) HCT (test code = 39.7 % 38.4-49.3 4544-3) MCV (test code = 84.3 fL 81.7-95.6 787-2) MCH (test code = 28.5 pg 26.1-32.7 785-6) MCHC (test code = 33.8 g/dL 31.2-35.0 786-4) RDW-SD (test code = 41.1 fL 38.5-51.6 72052-8) RDW-CV (test code = 13.3 % 12.1-15.4 788-0) PLT (test code = 178 See_Comment [Automated 777-3) message] The system which generated this result transmit sofia reference range : 150 - 328 10*3/ ?L. The reference range was not u sed to interpret th is result as normal/abnormal . MPV (test code = 10.8 fL 9.8-13.0 91122-3) NRBC/100 WBC (test 0.0 See_Comment [Automat ed code = 4465528911) message] The system which generated this result transmit sofia reference range : 0.0 - 10.0 /100 WBCs. The reference range was not used to interpret this result as normal/abnormal . NRBC x10^3 (test code See_Comment [Auto mated = 8948457968) message] The system which generated this result transmit sofia reference range : 10*3/?L. The reference range was not used to interpret this result as normal/abnormal . GRAN MAT (NEUT) % 85.5 % (test code = 770-8) IMM GRAN % (test code 1.60 % = 7799177307) LYMPH % (test code = 4.9 % 736-9) MONO % (test code = 7.1 % 5905-5) EOS % (test code = 0.4 % 713-8) BASO % (test code = 0.5 % 706-2) GRAN MAT x10^3(ANC) 14.72 10*3/uL 1.99-6.95 H (test code = 9467021349) IMM GRAN x10^3 (test 0.27 10*3/uL 0.00-0.06 H code = 8358486251) LYMPH x10^3 (test code 0.84 10*3/uL 1.09-3.23 L = 731-0) MONO x10^3 (test code 1.23 10*3/uL 0.36-1.02 H = 742-7) EOS x10^3 (test code = 0.07 10*3/uL 0.06-0.53 711-2) BASO x10^3 (test code 0.08 10*3/uL 0.01-0.09 = 704-7) Lab Interpretation Abnormal (test code = 69812-0) [facility] B CORE ANTIBODY [id number] 17:01:42 Test Item Value Reference Range Interpretation Comments HBCM 0.06 Semi-Quantitative (test code = 54122-8) ROXY (test code = Biotin has been reported ROXY) to cause a negative bias, interpret results relative to patient's use of biotin. [facility] (IGG AND IGM)2022-08-11 16:13:12 Test Item Value Reference Range Interpretation Comments HAV Total (test code Positive = 8179563564) HAVT 0.04 Semi-Quantitative (test code = 2991072289) ROXY (test code = ROXY) Indicates past or present infection with HAV or exposure to HAV due to vaccination. [facility]2 AG-AB WITH [id number] 15:34:32 Test Item Value Reference Range Interpretation Comments HIV 0.09 Negative Semi-quantitative (test code = 28624-7) ROXY (test code = Non-reactive for HIV-1 ROXY) antigen and HIV-1/HIV-2 antibodies. ?No laboratory evidence of HIV infection. ?Repeat in 2-4 weeks if acute HIV infection is suspected. [facility] B SURFACE [id number] 13:26:19 Test Item Value Reference Range Interpretation Comments HBsAg Semi-Quantitative (test code = 0.05 Negative 5195-3) [facility] SURFACE [id number] 13:08:34 Test Item Value Reference Range Interpretation Comments HBsAB (test code = Negative 2546986465) HBsAb 0.40 mIU/mL Semi-Quantitative (test code = 4996390229) ROXY (test code = Interpretation: ROXY) ?Hepatitis B Surface Antibody ? Negative - Patient is considered to be not immune to infection with HBV. ? ? Positive - Anti-HBs detected at greater than or equal to 12 mIU/mL. ?Patient is considered to be immune to infection with HBV. ? [facility] [id number] 13:08:14 Test Item Value Reference Range Interpretation Comments HCV Ab (test code = 10505-4) Negative HCV Semi-Quantitative (test code = 0.04 22953-5) [facility]OL[facility] (NA, K, CL, CO2, GLUCOSE, BUN, CREATININE, CA)2022-08-11 10:43:44 Test Item Value Reference Range Interpretation Comments NA (test code = 134 mmol/L 135-145 L 5859428369) K (test code = 3.9 mmol/L 3.5-5.0 3935672236) CL (test code = 104 mmol/L 98-108 6649177986) CO2 TOTAL (test code = 21 mmol/L 23-31 L 0235170237) AGAP (test code = 9 2-16 4442840689) BUN (test code = 15 mg/dL 7-23 4154393542) GLUCOSE (test code = 99 mg/dL 70-110 0362954322) CREATININE (test code = 0.87 mg/dL 0.60-1.25 3340929573) CALCIUM (test code = 8.7 mg/dL 8.6-10.6 4921225914) eGFR (test code = 90.4 mL/min/1.73m2 8762162991) ROXY (test code = ROXY) Association of Glomerular Filtration Rate (GFR) and Staging of Kidney Disease* + --+ --+ ------+| GFR (mL/min/1.73 m2) ?| With Kidney Damage ?| ?Without Kidney Damage+ --------+ --------+ +| ?>90 ?| ?Stage one ?| ? Normal ?+ ---+ ---+ -------+| ?60-89 ?| ?Stage two ?| ? Decreased GFR ? + --+ --+ ------+| ?30-59 ?| ?Stage three ?| ? Stage three ? + --+ --+ ------+| ?15-29 ?| ?Stage four ? | ? Stage four ?+ ---+ ---+ -------+| ?<15 (or dialysis) ? ?| ?Stage five ? | ? Stage five ?+ ---+ ---+ -------+ *Each stage assumes the associated GFR level has been in effect for at least three months. ?Stages 1 to 5, with or without kidney disease, indicate chronic kidney disease. Notes: Determination of stages one and two (with eGFR >59mL/min/1.73 m2) requires estimation of kidney damage for at least three months as defined by structural or functional abnormalities of the kidney, manifested by either:Pathological abnormalities or Markers of kidney damage (including abnormalities in the composition of the blood or urine or abnormalities in imaging tests). Lab Interpretation Abnormal (test code = 29920-7) [facility] WITH [id number] 10:25:21 Test Item Value Reference Range Interpretation Comments WBC (test code = 23.97 See_Comment H [Automated 7103-2) message] The system which generated this result transmit sofia reference range : 4.20 - 10.70 10*3/?L. The reference range was not used to interpret this result as normal/abnormal . RBC (test code = 4.59 See_Comment [Automated 339-4) message] The system which generated this result transmit sofia reference range : 4.26 - 5.52 10*6/?L. The reference range was not used to interpret this result as normal/abnormal . HGB (test code = 13.2 g/dL 12.2-16.4 718-7) HCT (test code = 39.5 % 38.4-49.3 4544-3) MCV (test code = 86.1 fL 81.7-95.6 787-2) MCH (test code = 28.8 pg 26.1-32.7 785-6) MCHC (test code = 33.4 g/dL 31.2-35.0 786-4) RDW-SD (test code = 42.6 fL 38.5-51.6 84737-9) RDW-CV (test code = 13.6 % 12.1-15.4 788-0) PLT (test code = 160 See_Comment [Automated 777-3) message] The system which generated this result transmit sofia reference range : 150 - 328 10*3/ ?L. The reference range was not u sed to interpret th is result as normal/abnormal . MPV (test code = 11.3 fL 9.8-13.0 62203-1) NRBC/100 WBC (test 0.0 See_Comment [Automat ed code = 2837632896) message] The system which generated this result transmit sofia reference range : 0.0 - 10.0 /100 WBCs. The reference range was not used to interpret this result as normal/abnormal . NRBC x10^3 (test code See_Comment [Auto mated = 8073704889) message] The system which generated this result transmit sofia reference range : 10*3/?L. The reference range was not used to interpret this result as normal/abnormal . GRAN MAT (NEUT) % 84.9 % (test code = 770-8) IMM GRAN % (test code 1.30 % = 0713237436) LYMPH % (test code = 6.9 % 736-9) MONO % (test code = 5.4 % 5905-5) EOS % (test code = 1.2 % 713-8) BASO % (test code = 0.3 % 706-2) GRAN MAT x10^3(ANC) 20.37 10*3/uL 1.99-6.95 H (test code = 5511502720) IMM GRAN x10^3 (test 0.30 10*3/uL 0.00-0.06 H code = 6260835371) LYMPH x10^3 (test code 1.65 10*3/uL 1.09-3.23 = 731-0) MONO x10^3 (test code 1.30 10*3/uL 0.36-1.02 H = 742-7) EOS x10^3 (test code = 0.28 10*3/uL 0.06-0.53 711-2) BASO x10^3 (test code 0.07 10*3/uL 0.01-0.09 = 704-7) Lab Interpretation Abnormal (test code = 96761-1) [facility] 10:18:59 Test Item Value Reference Range Interpretation Comments MAGNESIUM (test code = 7205331803) 2.2 mg/dL 1.7-2.4 Lab Interpretation (test code = Normal 19112-5) [facility] CentralPROSTATIC SPECIFIC [id number] 14:56:32 Test Item Value Reference Range Interpretation Comments PSA (test code = 4.83 ng/mL <=4.00 H 4316570379) ROXY (test code = ROXY) Biotin has been reported to cause a negative bias, interpret results relative to patient's use of biotin. Lab Interpretation (test Abnormal code = 21995-0) [facility]YCOSYLATED HEMOGLOBIN (A1C)2022-08-10 12:13:03 Test Item Value Reference Range Interpretation Comments HGB A1C (test code = 5.6 % 4.0-5.7 4548-4) ROXY (test code = ROXY) Reference RangesNormal: <5.7%Prediabetes: 5.7 - 6.4%Diabetes: > 6.5% Lab Interpretation (test Normal code = 19136-2) [facility] Central[facility]IT[facility]IN B12, [id number] 10:03:14 Test Item Value Reference Range Interpretation Comments VIT B12 (test code = 312 pg/mL 240-930 0706851018) ROXY (test code = ROXY) Biotin has been reported to cause a positive bias, interpret results relative to patient's use of biotin. Lab Interpretation (test Normal code = 82744-7) [facility] WITH [id number] 09:26:11 Test Item Value Reference Range Interpretation Comments WBC (test code = 21.25 See_Comment H [Automated 2507-2) message] The sy stem which generated this result transmitted reference range : 4.20 - 10.70 10*3/?L. The reference range was not used to interpret this result as normal/abnormal . RBC (test code = 5.11 See_Comment [Automated 197-8) message] The sy stem which generated this result transmitted reference range : 4.26 - 5.52 10*6/?L. The reference range was not used to interpret this result as normal/abnormal . HGB (test code = 14.4 g/dL 12.2-16.4 718-7) HCT (test code = 43.5 % 38.4-49.3 4544-3) MCV (test code = 85.1 fL 81.7-95.6 787-2) MCH (test code = 28.2 pg 26.1-32.7 785-6) MCHC (test code = 33.1 g/dL 31.2-35.0 786-4) RDW-SD (test code = 42.3 fL 38.5-51.6 60310-4) RDW-CV (test code = 13.5 % 12.1-15.4 788-0) PLT (test code = 145 See_Comment L [Automated 777-3) message] The sy stem which generated this result transmitted reference range : 150 - 328 10*3/ ?L. The reference r rogelio was not used to interpret this result as normal/abnormal . MPV (test code = 11.3 fL 9.8-13.0 81974-9) IPF % (test code = 6.7 % 1.2-10.7 Platelet count [id number]) measured by fluorescence method. NRBC/100 WBC (test 0.0 See_Comment [Automat ed code = [id number]) message] The system which generated this result transmitted reference range : 0.0 - 10.0 /100 WBCs. The refer ence range was not u sed to interpret th is result as normal/abnormal . NRBC x10^3 (test code See_Comment [Auto mated = [id number]) message] The s ystem which generated this result transmitted reference range : 10*3/?L. The reference range was not used to interpret this result as normal/abnormal . GRAN MAT (NEUT) % 87.7 % (test code = 770-8) IMM GRAN % (test code 1.90 % = [id number]) LYMPH % (test code = 3.9 % 736-9) MONO % (test code = 6.3 % 5905-5) EOS % (test code = 0.1 % 713-8) BASO % (test code = 0.1 % 706-2) GRAN MAT x10^3(ANC) 18.64 10*3/uL 1.99-6.95 H (test code = 8342813390) IMM GRAN x10^3 (test 0.40 10*3/uL 0.00-0.06 H code = 2320949493) LYMPH x10^3 (test 0.82 10*3/uL 1.09-3.23 L code = 731-0) MONO x10^3 (test code 1.33 10*3/uL 0.36-1.02 H = 742-7) EOS x10^3 (test code 0.03 10*3/uL 0.06-0.53 L = 711-2) BASO x10^3 (test code 0.03 10*3/uL 0.01-0.09 = 704-7) BANDS (test code = Increased A 3998237872) Lab Interpretation Abnormal (test code = 82529-9) [facility]. METABOLIC PANEL ([id number])2022-08-10 09:11:48 Test Item Value Reference Range Interpretation Comments NA (test code = 139 mmol/L 135-145 1783455291) K (test code = 3.8 mmol/L 3.5-5.0 4866357713) CL (test code = 105 mmol/L 98-108 0022873293) CO2 TOTAL (test code = 22 mmol/L 23-31 L 0101445717) AGAP (test code = 12 2-16 0437249104) BUN (test code = 21 mg/dL 7-23 6296415024) GLUCOSE (test code = 113 mg/dL 70-110 H 2305707104) CREATININE (test code = 0.87 mg/dL 0.60-1.25 9458427517) TOTAL BILI (test code = 1.1 mg/dL 0.1-1.5 5793967513) CALCIUM (test code = 8.4 mg/dL 8.6-10.6 L 5688856483) T PROTEIN (test code = 6.7 g/dL 6.3-8.2 2743737627) ALBUMIN (test code = 3.6 g/dL 3.5-5.0 5451961744) ALK PHOS (test code = 89 U/L 34-122 3088932279) ALTv (test code = 102 U/L 5-50 H 1742-6) AST(SGOT) (test code = 80 U/L 13-40 H 1423239948) eGFR (test code = 90.4 mL/min/1.73m2 5404270261) ROXY (test code = ROXY) Association of Glomerular Filtration Rate (GFR) and Staging of Kidney Disease* + --+ --+ ------+| GFR (mL/min/1.73 m2) ?| With Kidney Damage ?| ?Without Kidney Damage+ --------+ --------+ +| ?>90 ?| ?Stage one ?| ? Normal ?+ ---+ ---+ -------+| ?60-89 ?| ?Stage two ?| ? Decreased GFR ? + --+ --+ ------+| ?30-59 ?| ?Stage three ?| ? Stage three ? + --+ --+ ------+| ?15-29 ?| ?Stage four ? | ? Stage four ?+ ---+ ---+ -------+| ?<15 (or dialysis) ? ?| ?Stage five ? | ? Stage five ?+ ---+ ---+ -------+ *Each stage assumes the associated GFR level has been in effect for at least three months. ?Stages 1 to 5, with or without kidney disease, indicate chronic kidney disease. Notes: Determination of stages one and two (with eGFR >59mL/min/1.73 m2) requires estimation of kidney damage for at least three months as defined by structural or functional abnormalities of the kidney, manifested by either:Pathological abnormalities or Markers of kidney damage (including abnormalities in the composition of the blood or urine or abnormalities in imaging tests). Lab Interpretation Abnormal (test code = 78020-4) [facility] Test Item Value Reference Range Interpretation Comments MAGNESIUM (test code = 9517351168) 1.9 mg/dL 1.7-2.4 Lab Interpretation (test code = Normal 94640-7) [facility]. METABOLIC PANEL ([id number])2022-08-10 03:24:12 Test Item Value Reference Range Interpretation Comments NA (test code = 138 mmol/L 135-145 9170840038) K (test code = 3.8 mmol/L 3.5-5.0 1616499621) CL (test code = 103 mmol/L 98-108 5114331187) CO2 TOTAL (test code = 24 mmol/L 23-31 2202167667) AGAP (test code = 11 2-16 0468935939) BUN (test code = 26 mg/dL 7-23 H 8213886485) GLUCOSE (test code = 128 mg/dL 70-110 H 0794591943) CREATININE (test code = 1.10 mg/dL 0.60-1.25 7579332868) TOTAL BILI (test code = 1.2 mg/dL 0.1-1.1 H 5787661406) CALCIUM (test code = 8.3 mg/dL 8.6-10.6 L 5506071787) T PROTEIN (test code = 5.9 g/dL 6.3-8.2 L 4657952044) ALBUMIN (test code = 3.4 g/dL 3.5-5.0 L 9348288744) ALK PHOS (test code = 88 U/L 34-122 1401283208) ALTv (test code = 88 U/L 5-50 H 1742-6) AST(SGOT) (test code = 76 U/L 13-40 H 0600145729) eGFR (test code = 69.0 mL/min/1.73m2 1307335005) ROXY (test code = ROXY) Association of Glomerular Filtration Rate (GFR) and Staging of Kidney Disease* + --+ --+ ------+| GFR (mL/min/1.73 m2) ?| With Kidney Damage ?| ?Without Kidney Damage+ --------+ --------+ +| ?>90 ?| ?Stage one ?| ? Normal ?+ ---+ ---+ -------+| ?60-89 ?| ?Stage two ?| ? Decreased GFR ? + --+ --+ ------+| ?30-59 ?| ?Stage three ?| ? Stage three ? + --+ --+ ------+| ?15-29 ?| ?Stage four ? | ? Stage four ?+ ---+ ---+ -------+| ?<15 (or dialysis) ? ?| ?Stage five ? | ? Stage five ?+ ---+ ---+ -------+ *Each stage assumes the associated GFR level has been in effect for at least three months. ?Stages 1 to 5, with or without kidney disease, indicate chronic kidney disease. Notes: Determination of stages one and two (with eGFR >59mL/min/1.73 m2) requires estimation of kidney damage for at least three months as defined by structural or functional abnormalities of the kidney, manifested by either:Pathological abnormalities or Markers of kidney damage (including abnormalities in the composition of the blood or urine or abnormalities in imaging tests). Lab Interpretation Abnormal (test code = 48261-0) [facility] WITH [id number] 02:20:05 Test Item Value Reference Range Interpretation Comments WBC (test code = 6690-2) 24.91 See_Comment H [A utomated message] The system [employer] generated this result transmit sofia reference range : 4.20 - 10.70 10*3/?L. The reference range was not used to interpret this result as normal/abnormal . RBC (test code = 789-8) 5.00 See_Comment [Au tomated message] The system [employer] generated this result transmit sofia reference range : 4.26 - 5.52 10* 6/?L. The reference r rogelio was not used to interpret this result as normal/abnormal . HGB (test code = 718-7) 14.5 g/dL 12.2-16.4 HCT (test code = 4544-3) 42.9 % 38.4-49.3 MCV (test code = 787-2) 85.8 fL 81.7-95.6 MCH (test code = 785-6) 29.0 pg 26.1-32.7 MCHC (test code = 786-4) 33.8 g/dL 31.2-35.0 RDW-SD (test code = 41.4 fL 38.5-51.6 50258-7) RDW-CV (test code = 13.3 % 12.1-15.4 788-0) PLT (test code = 777-3) 139 See_Comment L [Au tomated message] The system [employer] generated this result transmit sofia reference range : 150 - 328 10*3/?L. The reference range was not used to interpret this result as normal/abnormal . MPV (test code = 12.4 fL 9.8-13.0 66796-7) NRBC/100 WBC (test code 0.0 See_Comment [Au tomated message] = 9108232715) The system i ch generated this result transmit sofia reference range : 0.0 - 10.0 /100 WBC s. The reference r rogelio was not used to interpret this result as normal/abnormal . NRBC x10^3 (test code = See_Comment [Au tomated message] 4094628003) The system [employer] h generated this result transmit sofia reference range : 10*3/?L. The reference range was not used to interpret this result as normal/abnormal . SEG % (test code = 75 % 33-76 18833-7) BAND % (test code = 4 % 0-1 H 09092-7) LYMPH % (test code = 15 % 14-54 57517-0) MONO % (test code = 6 % 0-4 H 52703-9) PLT ESTIMATE (test code Normal Normal = 9317-9) Lab Interpretation (test Abnormal code = 24042-7) [facility]"
[2022-11-10 18:03] LABS: Absolute Lymphocytes (CBC) 1.6 K/uL (0.7-4.9); Hematocrit 43.2 % (39.6-49.0); MCV 86.7 fL (80-100); MPV 9.8 fL (7.6-11.3); Platelets 207 thou/uL (152-406); RBC Red Blood Cell Count 4.98 M/uL (4.33-5.43)
[2022-11-10 18:22] LABS: Magnesium 2.5 mg/dL (1.6-2.4); Potassium 4.1 mEq/L (3.5-5.1)
--- NOTE | 2022-11-10 18:28 | ER ---
Nurse's Notes [facility] Name: Vincent Rhoades Age: 57 yrs Sex: Male : 1965 Arrival Date: 11/10/2022 Time: 17:19 Bed 17 Private MD: Diagnosis: Subsequent non-ST elevation (NSTEMI) myocardial infarction;Chest pain, unspecified;Essential (primary) hypertension Presentation: 11/10 17:28 Chief complaint: Patient states: chest pressure while lifting at work x 1 month ago. Pt aa5 reports pain got worse today, describes chest pain as burning and reports he felt like he was going to pass out at work today. Coronavirus screen: At this time, the client does not indicate any symptoms associated with coronavirus-19. Ebola Screen: Patient denies travel to an Ebola-affected area in the 21 days before illness onset. Initial Sepsis Screen: Does the patient meet any 2 criteria? No. Patient's initial sepsis screen is negative. Does the patient have a suspected source of infection? No. Patient's initial sepsis screen is negative. Risk Assessment: Do you want to hurt yourself or someone else? Patient reports no desire to harm self or others. Onset of symptoms was October 2022. 17:28 Acuity: ALESSANDRO 3 aa5 17:28 Method Of Arrival: Ambulatory aa5 Historical: - Allergies: 17:35 No Known Allergies; aa5 - Home Meds: 17:34 None [Active]; aa5 - PMHx: 17:34 Prostate issues; aa5 - PSHx: 17:34 None; aa5 - Immunization history:: Adult Immunizations unknown. - Social history:: Smoking status: Patient denies any tobacco usage or history of. Screenin:35 [facility] ED Fall Risk Assessment (Adult) History of falling in the last 3 months, lg3 including since admission No falls in past 3 months (0 pts). Abuse screen: Denies threats or abuse. Denies injuries from another. Nutritional screening: No deficits noted. Tuberculosis screening: No symptoms or risk factors identified. Assessment: 18:17 Reassessment: Pt brought to room 17 via ambulatory, accompanied by occupational health technician and family. ll1 18:25 General: Appears in no apparent distress. comfortable, Behavior is calm, cooperative, ll1 appropriate for age. 18:25 Pain: Complains of pain in chest Pain radiates to Throat Pain began suddenly. Neuro: ll1 Level of Consciousness is awake, alert, obeys commands, Oriented to person, place, time, situation. Cardiovascular: Patient's skin is warm and dry. Respiratory: Airway is patent Respiratory effort is even, unlabored. 19:35 General: Appears in no apparent distress. comfortable, Behavior is calm, cooperative. lg3 Pain: Complains of pain in chest Pain radiates to epigastric area Pain currently is 2 out of 10 on a pain scale. Neuro: No deficits noted. Briones Agitation-Sedation Scale (RASS): 0 - Alert and Calm Level of Consciousness is awake, alert, obeys commands, Oriented to person, place, time, situation. Cardiovascular: Reports chest pain, Capillary refill < 3 seconds Clubbing of nail beds is absent JVD is absent Patient's skin is warm and dry. Respiratory: No deficits noted. Airway is patent Respiratory effort is even, unlabored, Respiratory pattern is regular, symmetrical. GI: No deficits noted. No signs and/or symptoms were reported involving the gastrointestinal system. Abdomen is round non-distended, Patient currently denies nausea, vomiting. : No deficits noted. No signs and/or symptoms were reported regarding the genitourinary system. EENT: No deficits noted. No signs and/or symptoms were reported regarding the EENT system. Derm: No deficits noted. No signs and/or symptoms reported regarding the dermatologic system. Skin is intact, is healthy with good turgor, Skin is dry, Skin is normal, Skin temperature is warm. Musculoskeletal: No deficits noted. No signs and/or symptoms reported regarding the musculoskeletal system. Circulation, motion, and sensation intact. Range of motion: intact in all extremities. Vital Signs: 17:28 BP 162 / 114; Pulse 77; Resp 18 S; Temp 97.5(TE); Pulse Ox 99% on R/A; Weight 77.11 kg aa5 (R); Height 5 ft. 6 in. (R); 18:25 BP 157 / 102; Pulse 64; Resp 17; Pulse Ox 98% on R/A; Pain 2/10; ll1 19:33 BP 176 / 113; Pulse 59; Resp 20 S; Pulse Ox 100% on R/A; lg3 20:05 BP 166 / 98; Pulse 64; Resp 18 S; Pulse Ox 99% on R/A; lg3 17:28 Body Mass Index 27.44 (77.11 kg, 167.64 cm) aa5 18:25 Pain Scale: Adult ll1 ED Course: 17:23 Patient arrived in ED. im 17:24 Brayan Olivo DO is Attending Physician. ms3 17:28 Arm band placed on. aa5 17:34 Triage completed. aa5 17:35 Inserted saline lock: 22 gauge in right antecubital area, using aseptic technique. rs5 Blood collected. 17:35 EKG done, by ED staff. rs5 18:17 Rita Burnette, SAMIRA is Primary Nurse. ll1 18:27 Bria Sow MD is Hospitalizing Provider. ms3 18:31 XRAY Chest (1 view) In Process Unspecified. EDMS 18:55 Inserted saline lock: 20 gauge in left antecubital area, using aseptic technique. ll1 19:35 Patient has correct armband on for positive identification. Placed in gown. Bed in low lg3 position. Call light in reach. Side rails up X 1. Client placed on continuous cardiac and pulse oximetry monitoring. NIBP monitoring applied. monitoring manager on. Door closed. Noise minimized. Warm blanket given. Family accompanied patient. 19:35 Patient maintains SpO2 saturation greater than 95% on room air. lg3 20:10 Urinalysis w/ reflexes Sent. lg3 21:20 Provided Education on: admission. lg3 21:20 No provider procedures requiring assistance completed. Patient admitted, IV remains in lg3 place. intact, No redness/swelling at site. Administered Medications: 18:36 Drug: Aspirin PO Chewable Tablet 324 mg Route: PO; ll1 19:34 Follow up: Response: No adverse reaction lg3 18:38 Drug: Nitroglycerin Transdermal Patch 0.4 mg/hr 1 patches Route: Transdermal; Site: ll1 anterior chest wall; 18:45 Drug: Heparin (HI-Bolus No thrombolytic) - HEParin IVP 60 units/kg {Co-Signature: mb9 lacey (Stefania Santo RN).} Route: IVP; Site: right antecubital; 19:34 Follow up: Response: No adverse reaction lg3 18:47 Drug: Heparin (HI Drip) - (D5W IV 500 ml, [place] [address] units) 12 units/kg/hr ll1 {Co-Signature: mb9 (Stefania Santo RN).} Route: IV; Rate: calculated rate; Site: right antecubital; 19:34 Drug: Metoprolol IVP 5 mg Route: IVP; Site: left antecubital; lg3 20:10 Follow up: Response: No adverse reaction; Blood pressure is lowered lg3 20:16 Drug: Metoprolol PO 25 mg Route: PO; lg3 20:50 Follow up: Response: No adverse reaction lg3 Medication: 21:20 VIS not applicable for this client. lg3 Outcome: 18:28 Decision to Hospitalize by Provider. ms3 21:20 Admitted to Med/surg accompanied by tech, via wheelchair, room 223, with chart, Report lg3 called to Chai 21:20 Condition: stable 21:20 Instructed on the need for admit, Demonstrated understanding of instructions. 21:20 Patient left the ED. lg3 Signatures: Dispatcher [employer] EDCheryle Harrell RN RN aa5 Odalis Heck RN RN lg3 Rita Burnette RN RN ll1 Brayan Olivo DO DO ms3 Memo Ortega, RN RN rs5 Martha Vásquez Mary Beth RN mb9 Corrections: (The following items were deleted from the chart) 17:35 17:34 PMHx: None; marcie jack 17:43 07:00 Reassessment: No changes from previously documented assessment. See SI paperwork ll1 for further details ll1
--- NOTE | 2022-11-10 18:28 | EDPHYS ---
Physician Documentation [facility] Name: Vincent Rhoades Age: 57 yrs Sex: Male : 1965 Arrival Date: 11/10/2022 Time: 17:19 Bed 17 Private MD: ED Physician Brayan Olivo HPI: 11/10 17:34 This 57 yrs old Male presents to ER via Ambulatory with complaints of Chest ms3 Pain, Shortness Of Breath. 17:34 57-year-old male with no past medical history presents for chest pain that has been ms3 ongoing for 1 month. Patient states his discomfort at this time is a 2/10. Patient states the pain is worse when lifting. Patient denies alleviating factors. Patient endorses nausea, shortness of breath.. Historical: - Allergies: 17:35 No Known Allergies; aa5 - Home Meds: 17:34 None [Active]; aa5 - PMHx: 17:34 Prostate issues; aa5 - PSHx: 17:34 None; aa5 - Immunization history:: Adult Immunizations unknown. - Social history:: Smoking status: Patient denies any tobacco usage or history of. ROS: 17:34 Constitutional: Negative for fever, and chills. Neck: Negative for injury, pain, and ms3 swelling. 17:34 Abdomen/GI: Negative for abdominal pain, nausea, vomiting, diarrhea, and constipation, MS/Extremity: Negative for injury and deformity, Skin: Negative for injury, rash, and discoloration. 17:34 Cardiovascular: Positive for chest pain. 17:34 Respiratory: Positive for shortness of breath. 17:34 All other systems are negative. Exam: 17:34 Constitutional: This is a well developed, well nourished patient who is awake, alert, ms3 and in no acute distress. Head/Face: Normocephalic, atraumatic. Neck: Trachea midline, no cervical lymphadenopathy. Supple, full range of motion without nuchal rigidity, or vertebral point tenderness. No Meningismus. Chest/axilla: Normal chest wall appearance and motion. Nontender with no deformity. Cardiovascular: Regular rate and rhythm with a normal S1 and S2. No gallops, murmurs, or rubs. Normal PMI, no JVD. No pulse deficits. Respiratory: Lungs have equal breath sounds bilaterally, clear to auscultation and percussion. No rales, rhonchi or wheezes noted. No increased work of breathing, no retractions or nasal flaring. Abdomen/GI: Soft, non-tender, with normal bowel sounds. No distension or tympany. No guarding or rebound. No evidence of tenderness throughout. Skin: Warm, dry with normal turgor. Normal color with no rashes, no lesions, and no evidence of cellulitis. MS/ Extremity: Pulses equal, no cyanosis. Neurovascular intact. Full, normal range of motion. 18:04 ECG was reviewed by the Attending Physician. ms3 Vital Signs: 17:28 BP 162 / 114; Pulse 77; Resp 18 S; Temp 97.5(TE); Pulse Ox 99% on R/A; Weight 77.11 kg aa5 (R); Height 5 ft. 6 in. (R); 18:25 BP 157 / 102; Pulse 64; Resp 17; Pulse Ox 98% on R/A; Pain 2/10; ll1 19:33 BP 176 / 113; Pulse 59; Resp 20 S; Pulse Ox 100% on R/A; lg3 20:05 BP 166 / 98; Pulse 64; Resp 18 S; Pulse Ox 99% on R/A; lg3 17:28 Body Mass Index 27.44 (77.11 kg, 167.64 cm) aa5 18:25 Pain Scale: Adult ll1 MDM: 17:34 Patient medically screened. ms3 17:34 Differential diagnosis: abnormal EKG, acute myocardial infarction, gastroesophageal ms3 reflux disease (GERD), pneumonia. The patient was given aspirin in the Emergency Department. 18:37 HEART Score: History: Moderately Suspicious (1), ECG: Normal (0), Age: > 45 and < 65 ms3 years (1), Risk Factors: No Risk Factors Known (0), Troponin: > or = 3 x Normal Limit (2), Total Score = 4. Data reviewed: vital signs, nurses notes, lab test result(s), EKG, radiologic studies, and as a result, I will admit patient. Consideration of Admission/Observation Patient was admitted/placed on observation. Management of patient was discussed with the following: Hospitalist: Discussed case with JAMES Salazar and she accepts patient on behalf of Hospitalist service.. Speech Assistant: Dr Syed- Would like IV Heparin, ASA, NPO after MN, Nitro patch for pain. I considered the following discharge prescriptions or medication management in the emergency department Medications were administered in the Emergency Department. See MAR. Independent interpretation of the following test(s) in the Emergency Department EKG: See my EKG interpretation above X-Ray: My interpretation is CXR images reviewed by me does not reveal PNA or PTX. Care significantly affected by the following Social Determinants of Health: Poor access to healthcare and/or lack of insurance. Counseling: I had a detailed discussion with the patient and/or guardian regarding the historical points, exam findings, and any diagnostic results supporting the discharge/admit diagnosis, lab results, radiology results, the need for further work-up and treatment in the hospital. ED course: Discussed elevated troponin with patient and his . They understand and agree with plan. All questions were answered.. 11/10 17:42 Order name: Basic Metabolic Panel; Complete Time: 19:27 ms3 11/10 17:42 Order name: CBC with Diff; Complete Time: 18:19 ms3 11/10 17:42 Order name: Magnesium; Complete Time: 19:27 ms3 11/10 17:42 Order name: Troponin HS; Complete Time: 19:27 ms3 11/10 18:29 Order name: PT-INR; Complete Time: 19:27 ms3 11/10 18:29 Order name: Ptt, Activated; Complete Time: 19:27 ms3 11/10 19:13 Order name: NT PRO-BNP [facility] 11/10 19:13 Order name: Urinalysis w/ reflexes EDDE 11/10 19:13 Order name: Basic Metabolic Panel [facility] 11/10 20:33 Order name: Urinalysis w/ reflexes; Complete Time: 21:04 EDDE 11/10 17:42 Order name: XRAY Chest (1 view); Complete Time: 19:27 ms3 11/10 17:42 Order name: EKG; Complete Time: 17:43 ms3 11/10 19:08 Order name: CONS Physician Consult EDDE 11/10 19:13 Order name: EKG Electrocardiogram EDDE 11/10 19:13 Order name: Heart Healthy EDDE 11/10 19:13 Order name: NPO EDDE 11/10 17:42 Order name: Cardiac monitoring; Complete Time: 18:28 ms3 11/10 17:42 Order name: EKG - Nurse/Tech; Complete Time: 18:18 ms3 11/10 17:42 Order name: IV Saline Lock; Complete Time: 18:18 ms3 11/10 17:42 Order name: Labs collected and sent; Complete Time: 18:18 ms3 11/10 17:42 Order name: O2 Per Protocol; Complete Time: 18:28 ms3 11/10 17:42 Order name: O2 Sat Monitoring; Complete Time: 18:28 ms3 EC:04 Rate is 75 beats/min. Rhythm is regular. QRS [place] is Normal. OR interval is normal. QRS ms3 interval is normal. Clinical impression: Normal ECG. Interpreted by me. Reviewed by me. Administered Medications: 18:36 Drug: Aspirin PO Chewable Tablet 324 mg Route: PO; ll1 19:34 Follow up: Response: No adverse reaction lg3 18:38 Drug: Nitroglycerin Transdermal Patch 0.4 mg/hr 1 patches Route: Transdermal; Site: ll anterior chest wall; 18:45 Drug: Heparin (OK-Bolus No thrombolytic) - HEParin IVP 60 units/kg {Co-Signature: mb9 ll1 (Stefania Santo RN).} Route: IVP; Site: right antecubital; 19:34 Follow up: Response: No adverse reaction lg3 18:47 Drug: Heparin (OK Drip) - (D5W IV 500 ml, [place] [address] units) 12 units/kg/hr ll1 {Co-Signature: mb9 (Stefania Santo RN).} Route: IV; Rate: calculated rate; Site: right antecubital; 19:34 Drug: Metoprolol IVP 5 mg Route: IVP; Site: left antecubital; lg3 20:10 Follow up: Response: No adverse reaction; Blood pressure is lowered lg3 20:16 Drug: Metoprolol PO 25 mg Route: PO; lg3 20:50 Follow up: Response: No adverse reaction lg3 Disposition: 18:27 Critical Care:. ms3 Disposition Summary: 11/10/22 18:28 Hospitalization Ordered Hospitalization Status: Inpatient Admission ms3 Provider: Bria Sow ms3 Location: Telemetry/MedSurg (Inpatient) ms3 Condition: Stable ms3 Problem: new ms3 Symptoms: are unchanged ms3 Bed/Room Type: Standard ms3 Room Assignment: 223(11/10/22 19:56) cg Diagnosis - Subsequent non-ST elevation (NSTEMI) myocardial infarction ms3 - Chest pain, unspecified ms3 - Essential (primary) hypertension ms3 Forms: - Medication Reconciliation Form ms3 - SBAR form ms3 - Leadership Thank You Letter ms3 Critical care time excluding procedures: 18:27 Critical care time: Bedside Care: 30 minutes, Consultation: 10 minutes. Total time: 40 ms3 minutes Signatures: Dispatcher [employer] EDCheryle Harrell RN RN aa5 Monique Thompson RN RN cg Odalis Heck RN RN lg3 Rita Burnette RN RN ll1 Brayan Olivo DO DO ms3 Stefania Santo RN mb9 Corrections: (The following items were deleted from the chart) 17:35 17:34 PMHx: None; aa5 aa5 19:56 18:28 ms3 cg
[2022-11-10] MEDS ORDERED: HEPARIN/D5W 25,000 UNIT/500 ML BAG IV ONE (18:45)
[2022-11-10] MEDS ORDERED: NITROGLYCERIN 1 GM PKT TD ONE (18:45)
[2022-11-10] MEDS ORDERED: ASPIRIN 81 MG CHEWABLE TABLET ONE (18:45)
[2022-11-10] MEDS ORDERED: HEPARIN 5000 UNIT/ML 1 ML VIAL ONE (18:45)
--- NOTE | 2022-11-10 18:58 | RAD REPORT ---
EXAM DESCRIPTION: RAD - Chest Single View - 11/10/2022 6:29 pm CLINICAL HISTORY: CHEST PAIN Chest pain. COMPARISON: No comparisons FINDINGS: Portable technique limits examination quality. The lungs are emphysematous but grossly clear. The heart is normal in size. No displaced fractures. IMPRESSION: No acute intrathoracic process suspected.
--- NOTE | 2022-11-10 19:04 | P.HP ---
Certification for Inpatient Patient admitted to: Inpatient With expected LOS: <2 Midnights Patient will require the following post-hospital care: None Practitioner: I am a practitioner with admitting privileges, knowledge of patient current condition, hospital course, and medical plan of care. Services: Services provided to patient in accordance with Admission requirements found in Title 42 Section 412.3 of the Code of Federal Regulations Patient History Date of Service: 11/10/22 Reason for admission: NSTEMI History of Present Illness: 57-year-old male, Lithuanian-speaking with a past medical history of hypertension presents to the emergency room for chest pain, shortness of breath. He reports intermittent chest pain over the last month. He reports chest pain is worse with exertion. On arrival to the ER chest pain was 8 out of 10, currently chest pain is 2 out of 10. Is a mild constant pressure, that feels epigastric, and pressure in the neck. Denies arm radiation, denies diaphoresis, night nausea vomiting, fever, abdominal pain, edema. He reports father of [place] in his 70s. 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 He reports history of hypertension however has not taken lisinopril due to cough. He denies history of CAD, hyperlipidemia, diabetes. Plan to admit for NSTEMI, uncontrolled hypertension chest pain, ER evaluation EKG 75 beats/min. Rhythm is regular. QRS [place] is Normal. PA interval is normal. QRS interval is normal. Clinical impression: Normal ECG. Laboratory evaluation troponin 670, CBC unremarkable, BUN 22, hypomagnesia and 2.5, UA within normal limits, chest x-ray IMPRESSION: No acute intrathoracic process suspected. Heart is normal in size Review of Systems 10-point ROS is otherwise unremarkable Physical Examination - Physical Exam General: Alert, In no apparent distress, Oriented x3 HEENT: Atraumatic, Normocephalic, PERRLA Neck: Supple, 2+ carotid pulse no bruit, JVD not distended Respiratory: Clear to auscultation bilaterally, Normal air movement Cardiovascular: No edema, Normal pulses, Regular rate/rhythm, Other (Uncontrolled hypertension) Capillary refill: <2 Seconds Gastrointestinal: Normal bowel sounds, Soft and benign Musculoskeletal: No clubbing, No swelling Integumentary: No rashes, No breakdown Neurological: Normal speech, Normal strength at 5/5 x4 extr, Normal tone, Sensation intact - Studies Laboratory Data (last 24 hrs) 11/10/22 11/10/22 17:51 17:51 WBC 8.90 Hgb 14.6 Hct 43.2 Plt Count 207 Sodium 140 Potassium 4.1 BUN 22 H Creatinine 1.08 Glucose 103 Magnesium 2.5 H Assessment and Plan - Plan Assessment plan NSTEMI Chest pain Uncontrolled hypertension Acute kidney injury Hypomagnesia DVT Assessment plan NSTEMI Chest pain Uncontrolled hypertension EKG 75 beats/min. Rhythm is regular. QRS [place] is Normal. PA interval is normal. QRS interval is normal. Clinical impression: Normal ECG. Laboratory evaluation troponin 670, Cardiology consult, trend troponins, telemetry heparin drip, aspirin given in the ER, start p.o. metoprolol, antihyperlipid, nitro paste Q6 Acute kidney injury, Trend kidney function, gentle IV fluids BUN 22, hypomagnesia and 2.5, Hypermagnesia Trend electrolytes replace as needed DVT heparin drip Full code N.p.o. after midnight Discharge Plan: Home Plan to discharge in: 48 Hours - Advance Directives Does patient have a Living Will: No Does patient have a Durable POA for Healthcare: No - Code Status/Comfort Care Code Status: Full Code Physician Review: Patient Assessed, Agree with Above Assessment and Plan Critical Care: No Time Spent Managing Pts Care (In Minutes): 50
[2022-11-10 19:11] LABS: Protime INR 0.95
[2022-11-10] MEDS ORDERED: ONDANSETRON 4 MG/2 ML VIAL IV PRN (19:11)
[2022-11-10] MEDS ORDERED: METOPROLOL TARTRATE 5 MG/5 ML INJ IV ONE (19:37)
[2022-11-10] MEDS ORDERED: METOPROLOL TAR 25 MG TAB ONE (20:25)
[2022-11-10 20:33] LABS: Specific Gravity 1.023 (1.005-1.030); Urine Bacteria None Seen /HPF (<20); Urine Bilirubin NEGATIVE (Negative); Urine Blood Negative (Negative); Urine Clarity Clear (Clear); Urine Color Light-Yellow (Yellow); Urine Glucose NEGATIVE (Negative); Urine Protein NEGATIVE (Negative); Urine RBC <5 /HPF (None Seen); Urine Urobilinogen Normal (Normal); Urine pH 6.5 (5.0-7.0)
[2022-11-10] MEDS: METOPROLOL TAR 25 MG TAB PO SCH (21:15)
[2022-11-10] MEDS ORDERED: HEPARIN/D5W 25,000 UNIT/500 ML BAG IV SCH (21:16)
[2022-11-10] MEDS ORDERED: HEPARIN/D5W 500 ML IV PRN (21:16)
[2022-11-10 21:45] LABS: Absolute Lymphocytes (CBC) 2.2 K/uL (0.7-4.9); Hematocrit 41.8 % (39.6-49.0); Lymphocytes % 22.7 % (15.3-44.8); MPV 9.7 fL (7.6-11.3); Platelets 202 thou/uL (152-406)
[2022-11-10 22:35] VITALS: BMI 28.8
[2022-11-10] MEDS: ZOLPIDEM TARTRATE 5 MG TABLET PO PRN (22:42)
[2022-11-11] MEDS: NITROGLYCERIN 1 GM PKT TD SCH ×4 (00:49→18:16)
[2022-11-11 03:17] LABS: MPV 9.8 fL (7.6-11.3); Platelets 181 thou/uL (152-406)
[2022-11-11 04:05] LABS: Albumin 3.4 g/dL (3.4-5.0); Bilirubin Total 0.4 mg/dL (0.2-1.0); Magnesium 2.2 mg/dL (1.6-2.4); Potassium 3.7 mEq/L (3.5-5.1); Protein, Total 6.2 g/dL (6.4-8.2)
[2022-11-11 04:19] LABS: Troponin High Sensitivity 3647.2 pg/mL (<58.9)
[2022-11-11] MEDS ORDERED: NA CHLORIDE 0.9% 250 ML ONE (05:27)
[2022-11-11] MEDS: METOPROLOL TAR 25 MG TAB PO SCH ×2 (05:50→18:17)
[2022-11-11] MEDS ORDERED: KCL 20 MEQ/100 mL IVPB 20 MEQ/100 ML BAG IV SCH (06:00)
[2022-11-11 06:50] LABS: Specific Gravity > 1.030 (1.005-1.030); Urine Bacteria None Seen /HPF (<20); Urine Bilirubin NEGATIVE (Negative); Urine Blood Negative (Negative); Urine Clarity Clear (Clear); Urine Color Light-Yellow (Yellow); Urine Glucose NEGATIVE (Negative); Urine Mucus 2+ /HPF (None Seen); Urine Protein TRACE (Negative); Urine RBC <5 /HPF (None Seen); Urine Urobilinogen Normal (Normal)
[2022-11-11] MEDS ORDERED: ASPIRIN 325 MG TAB PO SCH (09:00)
[2022-11-11] MEDS ORDERED: HEPA 1000U/500MLS 2,000 UNIT/1,000 ML BAG IV ONE (10:27)
[2022-11-11] MEDS ORDERED: LIDOCAINE 1% 20 ML MDV ONE (10:27)
[2022-11-11] MEDS ORDERED: VERAPAMIL HCL 10 MG/4 ML VIAL IV ONE (10:28)
[2022-11-11] MEDS ORDERED: FENTANYL CITR 100 MCG/2 ML ONE (10:28)
[2022-11-11] MEDS ORDERED: MIDAZOLAM HCL 2 MG/2 ML INJ ONE (10:28)
[2022-11-11] MEDS ORDERED: ASPIRIN 325 MG TAB ONE (10:28)
[2022-11-11] MEDS ORDERED: HEPARIN 5000 UNIT/ML 1 ML VIAL ONE (10:28)
[2022-11-11] MEDS ORDERED: CLOPIDOGREL 75 MG TABLET ONE ×2 (10:28→12:38)
[2022-11-11] MEDS ORDERED: TICAGRELOR 90 MG TABLET PO ONE (10:29)
[2022-11-11] MEDS ORDERED: ATROPINE SULF 1 MG/10 ML SYR IV ONE (10:29)
[2022-11-11] MEDS ORDERED: HEPARIN 10,000 UNIT/10 ML VIAL IV ONE (10:29)
[2022-11-11] MEDS ORDERED: NA CHLORIDE 0.9% 500 ML ONE (10:47)
--- NOTE | 2022-11-11 12:58 | EKG ---
Test Date: 2022-11-10 Test Time: 17:42:16 Shock Absorption Floor Layer: CONG MEASUREMENT RESULTS: Intervals: Rate: 75 NV: 140 QRSD: 90 QT: 368 QTc: 410 [place]: P: 51 NV: 140 QRS: 88 T: 40 INTERPRETIVE STATEMENTS: Normal sinus rhythm Normal ECG No previous ECG available for comparison Electronically Signed On 11-11-22 12:55:53 CDT by Yosi Syed
[2022-11-11] MEDS ORDERED: FAMOTIDINE 20 MG TAB PO ONE (13:00)
--- NOTE | 2022-11-11 16:54 | CON ---
Date of Consultation: 11/11/2022 Reason For Consultation: Hue-WO-ydwviffsc myocardial infarction. History Of Present Illness: A 57-year-old male with history of hypertension, on treatment for that, presented with chest pain, pressure like, radiates to his neck and left upper extremity with activiti es that is getting better with rest and lately started having chest pain at rest, so he presented to the emergency room and found to have [id number] myocardial infarction with elevated troponin. Patient has been chest pain free since admission. Past Medical History: Hypertension. Medications: Refer to reconciliation sheet for the list. Allergies: NO KNOWN DRUG ALLERGIES. Family History: No premature coronary artery disease or cancer. Social History: Does not smoke or drink. Does not use any drugs. Review of Systems: All systems reviewed and they were negative except what mentioned in HPI. Physical Examination: Vital Signs: Reviewed. Head and Neck: Pupils are equal, reactive to light. Intact eye movements. No JVD. No cervical lym phadenopathy. Neck is supple. Thyroid is not enlarged. Lungs: Clear to auscultation bilaterally. No rhonchi, wheezing, or crackles. No accessory muscle u se. Heart: Regular rate and rhythm. No extra sounds. Abdomen: Soft, nontender. Bowel sounds positive. No organomegaly. No masses or hernia. No rigidi ty or rebound. Extremities: No edema, clubbing, cyanosis. Intact pulses. Skin: No rash. Neurologic: Alert, awake, oriented x3. No acute focal deficits appreciated. Investigations: Labs reviewed. Assessment/recommendation: 1.Fff-OG-hfweiuifk myocardial infarction. The patient was on heparin drip by my recommendation last night. We will hold the heparin in preparation for coronary angiogram and continue baby aspirin and recommend high-dose statin, Lipitor 40 mg at bedtime. 2.Hypertension. Resume home medications. Adjust as needed. SR/MODL Voice ID: [id number] Report ID: [id number]
--- NOTE | 2022-11-11 17:54 | OP ---
Date of Procedure: 11/11/2022 Surgeon: ORESTES ROJAS Procedures Performed: 1.Selective coronary angiogram. 2.Left heart catheterization. 3.Percutaneous coronary intervention of the mid to distal severe left circumflex stenosis, just 2.5 x 28 mm Synergy drug-eluting stent. 4.Percutaneous coronary intervention of severe ostial OM 1 branch, which is a culprit for the myocar dial infarction. I used 3.0 x 12 mm drug-eluting stent. Indication: Non-ST elevation myocardial infarction. Access: Right radial artery 6-[place] closed with TR band. Complications: None. Bleeding: Less than 20 mL. Anesthesia: Sedation is none. Patient's blood pressure was low throughout. Description Of Procedure: After risks, benefits, alternatives were explained, patient agreed to proc eed. Patient was brought into the cardiac catheterization laboratory, prepped and draped in a sterile fash ion. Then, I accessed the right radial artery using pediatric micropuncture. We placed 6-[place] Sle nder sheath and took a 5-[place] 4.0 catheter into the aortic root, engaged the left main in the right coronary artery, took standard views, and then gave systemic heparin to assure ACT level above 250. Loaded with 600 mg of Plavix and 325 mg aspirin. Took EBU 3.5 6-[place] guide into the aortic root over a J-wire, engaged left main, took a Runthrough wire into the left circumflex, placed it dis tally, and using a 2.5 balloon, lesion expanded very well and then I placed 2.5 x 28 mm drug-eluting stent across the area of stenosis of the left circumflex with excellent results and then using a 2.5 balloon, I re-dilated the ostial OM 1 branch lesion and then placed a 3.0 x 12 mm Synergy drug-elutin g stent with excellent results. There is a small OM2 branch that is jailed in the first stent, but w ith CRISELDA-3 flow. Then, after removing the wire, final angiogram was satisfactory and removed the lashay de and sheath, placed TR band with good hemostasis. Findings: 1.Left main: Large, normal. 2.LAD: Moderate-sized vessel with proximal 20%, mid 30%, then luminal irregularities and distally i t is very small, less than 0.5 mm with a 60% stenosis. Diagonal branches with luminal irregularities . 3.Left circumflex is large artery has proximal 30% and then OM1 branch has 99% ostial status post fonseca ccessful PCI. It is the culprit. Then, the mid to distal left circumflex is large artery still and has 99% long stenosis status post successful PCI as above. 4.RCA and large dominant proximal 20% stenosis. Mid 30% stenosis and distally appears to be luminal regularities and the PDA has mid 30% stenosis. 5.Elevated LVEDP at 28 mmHg. Conclusion: 1.Severe left circumflex and OM1 branch stenosis, status post successful PCI as above. 2.Moderate coronary artery disease elsewhere. 3.Elevated LVEDP. Recommendation: Medical management. Aspirin, Plavix and statin and also diuretics. SR/MODL Voice ID: [id number] Report ID: [id number]
[2022-11-11] MEDS ORDERED: ATORVASTATIN 80 MG TAB PO SCH (21:00)
[2022-11-11] MEDS: ZOLPIDEM TARTRATE 5 MG TABLET PO PRN (21:01)
--- NOTE | 2022-11-12 00:07 | P.PN ---
Date of Service: 11/11/22 Subjective patient clinically doing well status post cardiac catheterization and stent placement. Monitor overnight and anticipate discharge in the morning Physical Examination - Vitals Reviewed - Physical Exam General: Alert, In no apparent distress, Oriented x3 Respiratory: Clear to auscultation bilaterally Cardiovascular: Regular rate/rhythm Gastrointestinal: Normal bowel sounds, Soft and benign Musculoskeletal: No clubbing, No swelling Integumentary: No rashes, No breakdown Neurological: No focal deficits Assessment and Plan - Assessment Assessment plan 1. NSTEMI 2. Uncontrolled hypertension 3. Acute kidney injury 4. Hypomagnesia 5. DVT - Plan Plan NSTEMI Chest pain Uncontrolled hypertension Status post cardiac catheterization; continue anti-platelet therapy as patient was stented x2. Acute kidney injury, Continue monitor renal function Hypermagnesia Trend electrolytes replace as needed DVT heparin drip Full code N.p.o. after midnight Discharge Plan: Home Plan to discharge in: 48 Hours - Advance Directives Does patient have a Living Will: No Does patient have a Durable POA for Healthcare: No - Code Status/Comfort Care Code Status: Full Code Physician Review: Patient Assessed, Agree with Above Assessment and Plan Critical Care: No Time Spent Managing Pts Care (In Minutes): 50
[2022-11-12] MEDS: NITROGLYCERIN 1 GM PKT TD SCH ×2 (00:48→06:18)
[2022-11-12 03:43] LABS: Absolute Lymphocytes (CBC) 1.6 K/uL (0.7-4.9); Albumin 3.3 g/dL (3.4-5.0); Bilirubin Total 0.2 mg/dL (0.2-1.0); Hematocrit 40.3 % (39.6-49.0); Lymphocytes % 17.4 % (15.3-44.8); MCV 86.6 fL (80-100); MPV 9.7 fL (7.6-11.3); Platelets 180 thou/uL (152-406); Potassium 3.9 mEq/L (3.5-5.1); Protein, Total 6.4 g/dL (6.4-8.2); RBC Red Blood Cell Count 4.65 M/uL (4.33-5.43)
[2022-11-12] MEDS: METOPROLOL TAR 25 MG TAB PO SCH (06:18)
[2022-11-12 07:57] VITALS: BP 158/98; TEMP 97.1
[2022-11-12] MEDS ORDERED: CLOPIDOGREL 75 MG TABLET PO SCH (09:00)
[2022-11-12] MEDS ORDERED: ASPIRIN 81 MG CHEWABLE TABLET PO SCH (09:00)
[2022-11-12] MEDS ORDERED: POTASSIUM CL SA 10 MEQ TAB PO ONE (09:00)
[2022-11-12 09:20] VITALS: O2SAT 96
== END 2022-11-12 10:50 | disposition home or self-care (01) | DRG 247 ==
LOC: ER 17:19 → ERHOLD 19:05 → 2ND 20:20
PROVIDERS: ADMIT Hospitalist; ATTEND Hospitalist
PROC: 027135Z Dilation of Coronary Artery, Two Arteries with Two Drug-eluting Intraluminal Devices, Percutaneous Approach (ICD-10-PCS; principal; 2022-11-11)
PROC: 4A023N7 Measurement of Cardiac Sampling and Pressure, Left Heart, Percutaneous Approach (ICD-10-PCS; 2022-11-11)
PROC: B2111ZZ Fluoroscopy of Multiple Coronary Arteries using Low Osmolar Contrast (ICD-10-PCS; 2022-11-11)
DX: I21.4 Non-ST elevation (NSTEMI) myocardial infarction (principal); N17.9 Acute kidney failure, unspecified; I25.10 Atherosclerotic heart disease of native coronary artery without angina pectoris; I10 Essential (primary) hypertension; E83.41 Hypermagnesemia; R05.9 Cough, unspecified; Z91.148 Patient's other noncompliance with medication regimen for other reason
CPT/HCPCS: 36415; 71045; 76937; 80048; 80053; 80061; 81001; 83735; 83880; 84484; 85025; 85049; 85347; 85610; 85730; 92928; 92929; 93005; 93458; 94760; 99285; C1725; C1893; J0461; J1644; J2001; J2250; J2405; J3010; J3480; J7040; J7050; Q9967